=== PATIENT | male | born 1965 | race Caucasian/White ===

== ENCOUNTER 2019-03-12 01:08 | Emergency (ER) | payer MEDICARE, MEDICAID ==
[~2019-03-12] VITALS: Ht 180.3 cm; Wt 59.1 kg
[~2019-03-12 01:08] MED LIST: NO HOME MEDS
[2019-03-12 01:11] VITALS: BP 123/79
[2019-03-12] MEDS ORDERED: PENI500T2 PO (01:50)
[2019-03-12] MEDS ORDERED: IBUP-1984 PO (01:50)
== END 2019-03-12 02:15 | disposition home or self-care (01) ==
LOC: ER 01:08
DX: K04.7 Periapical abscess without sinus (principal); J02.9 Acute pharyngitis, unspecified; Z79.899 Other long term (current) drug therapy; Z88.5 Allergy status to narcotic agent
CPT/HCPCS: 99283

== ENCOUNTER 2019-03-26 21:02 | Emergency (ER) | payer MEDICARE, MEDICAID ==
[~2019-03-26] VITALS: Ht 177.8 cm; Wt 72.7 kg
[~2019-03-26 21:02] MED LIST changes: +IBUP-1984 PO; +PENI500T2 PO
[2019-03-26 21:08] VITALS: BP 141/88
[2019-03-26] MEDS ORDERED: CLIN-117 PO (21:34)
== END 2019-03-26 21:44 | disposition home or self-care (01) ==
LOC: ER 21:03
DX: K04.7 Periapical abscess without sinus (principal); Z88.6 Allergy status to analgesic agent
CPT/HCPCS: 99283